=== PATIENT | male | born 1960 | race Caucasian/White ===

== ENCOUNTER 2017-03-02 13:29 | Outpatient (CLI) | payer OTHER | END 2017-03-02 13:30 | disposition home or self-care (01) | DRG 558 | LOC: CONVCARE 13:29 | PROVIDERS: ATTEND Orthopaedic Surgery | DX: M75.42 Impingement syndrome of left shoulder (principal); M75.41 Impingement syndrome of right shoulder | CPT/HCPCS: 73030 ==